=== PATIENT | male | born 1995 | race Caucasian/White ===

== ENCOUNTER 2016-11-14 11:23 | Emergency (ER) | payer OTHER ==
[2016-11-14] MEDS ORDERED: IBUPROFEN 600 MG TABLET ONE (12:25)
[2016-11-14] MEDS ORDERED: ACETAMINOPHEN 325 MG TABLET ONE (12:25)
[2016-11-14] MEDS ORDERED: AMOXICILLIN TRIHYDRATE 875 MG TABLET PO ONE (12:45)
== END 2016-11-14 13:29 | disposition home or self-care (01) ==
LOC: ED 11:23
DX: H73.012 Bullous myringitis, left ear (principal); H60.92 Unspecified otitis externa, left ear; J06.9 Acute upper respiratory infection, unspecified; F17.210 Nicotine dependence, cigarettes, uncomplicated
CPT/HCPCS: 99283 ×2; A9270 ×2